=== PATIENT | female | born 1945 ===

== ENCOUNTER 2019-06-08 09:01 | Outpatient (CLI) | payer OTHER ==
[~2019-06-08 09:01] MED LIST: AVALIDE 300-12.1 TAB; CARVEDILOL6.25 MG; GLUCOPHAGE XR500 MG; KETO10TA2 PO; MICARDIS HCT1 UDTAB; ORPH100T PO; [UNRECOGNIZED DRUG - OTHER]
== END 2019-06-08 09:02 | disposition home or self-care (01) ==
LOC: RAD 09:01
DX: R51 Headache (principal)
CPT/HCPCS: 70551